=== PATIENT | male | born 1945 | race Two or more races ===

== ENCOUNTER 2016-10-26 17:02 | Emergency (ER) | payer MEDICARE, OTHER ==
[~2016-10-26] VITALS: Ht 177.8 cm; Wt 77.3 kg
[2016-10-26] MEDS ORDERED: ALLO100T PO (17:08)
[2016-10-26] MEDS ORDERED: LOSA50TA37 PO (17:08)
[2016-10-26] MEDS ORDERED: ASPI-556 PO (17:08)
[2016-10-26] MEDS ORDERED: KETOROLAC TROMETHAMINE 60 MG/2 ML VIAL IM ONE (18:45)
[2016-10-26] MEDS ORDERED: DiphenhydrAMINE HCL 25 MG CAPSULE PO ONE (19:45)
[2016-10-26] MEDS ORDERED: HYDROCODONE/ACETAMINOPHEN 5-325 MG TABLET PO ONE (19:45)
[2016-10-26 23:01] VITALS: BP 124/78
== END 2016-10-26 23:02 | disposition home or self-care (01) ==
LOC: EMS 17:04
DX: S83.92XA Sprain of unspecified site of left knee, initial encounter (principal); M10.9 Gout, unspecified; E78.00 Pure hypercholesterolemia, unspecified; I10 Essential (primary) hypertension; Z79.899 Other long term (current) drug therapy; Z79.82 Long term (current) use of aspirin; X58.XXXA Exposure to other specified factors, initial encounter; Y93.9 Activity, unspecified; Y92.9 Unspecified place or not applicable; Y99.9 Unspecified external cause status
CPT/HCPCS: 29505; 73562; 73700; 96372; 99284; J1885